=== PATIENT | male | born 1990 | race Caucasian/White ===

== ENCOUNTER 2016-03-08 18:01 | Emergency (ER) | payer OTHER, MEDICAID ==
[~2016-03-08] VITALS: Ht 208.3 cm; Wt 117.9 kg
[~2016-03-08 18:01] MED LIST: AMOX-358 PO; AMOX500C2 PO; OFLO5DRO7 LEFT EAR; TRAM-42 PO
--- OUTSIDE RECORDS SUMMARY | 2016-03-08 18:05 | XMS REPORT | Continuity of Care Document ---
Author Author [facility] Organization [facility] Address Unknown Phone Unavailable Care Team Providers Care Buhr Dresser Name Role Phone NO, LOCAL PHYSICIAN PCP Unavailable Insurance Providers Payer Name Policy Number Subscriber Name Relationship Self Pay Will Leroy 17 Self / Same As Patient Advance Directives Directive Response Recorded Date/Time Advance Directives No 09/19/15 11:47am Health Care Power of Tin Can Feeder No 09/19/15 11:47am Organ Donor No 09/19/15 11:47am Chief Complaint and Reason for Visit Chief Complaint Ear Problems Reason for Visit Otitis externa Otitis media Problems Active Problems Medical Problem Onset Date Status Otitis externa Unknown Acute Otitis media Unknown Acute Medications Current Home Medications Medication Dose Units Route Directions Days/Qty Instructions Start Date Amoxicillin/Potassium Clav 1 Each 1 Each Oral Twice A Day 20 10/14/15 Ofloxacin 5 Ml 10 Drops Left Ear Daily 7 Days 10/14/15 Past Home Medications Medication Directions Ordered Status Amoxicillin 500 Mg Capsule, 1000 Mg Oral Three Times A Day 09/19/15 Discontinued Social History Social History Problem Response Recorded Date/Time Recent Foreign Travel No 10/14/2015 2:41pm Recent Infectious Disease Exposure No 10/14/2015 2:41pm Type Used Cigarettes 09/19/2015 11:47am Recent Hopitalizations No 10/14/2015 2:44pm Hospital Discharge Instructions No hospital discharge instructions. Plan of Care Discharge Date 10/14/15 3:04pm Disposition 01 HOME, SELF-CARE Condition at Discharge Stable Instructions/Education Provided Otitis Externa (ED) Otitis Media (ED) Forms Provided Work Release Form Prescriptions See Medication Section Referrals LAVONNE NOLEN MD - NO,LOCAL PHYSICIAN - Primary Care Physician Additional Instructions/Education 1. Medication as directed 2. Follow-up with Dr. Nolen 2 All discharge instructions reviewed with patient and/or family. Voiced understanding. Functional Status No functional status results. Allergies, Adverse Reactions, Alerts No known allergies. Immunizations No immunization records. Vital Signs Acute Vital Signs Vital Response Date/Time Temperature (Fahrenheit) 98 degrees F (97.6 - 99.5) 10/14/2015 2:41pm Temperature (Calculated Celsius) 36.6696 degrees C (36.4 - 37.5) 10/14/2015 2 :41pm Temperature Source Temporal 09/19/2015 12:34pm Pulse Rate (adult) 98 bpm (60 - 90) 10/14/2015 2:41pm Respiratory Rate 16 bpm (12 - 24) 10/14/2015 2:41pm O2 Sat by Pulse Oximetry 97 % (88 - 100) 10/14/2015 2:41pm Blood Pressure 119/79 mm Hg 10/14/2015 2:41pm Blood Pressure Mean 92 mm Hg 10/14/2015 2:41pm Pain Numeric Pain Scale 7 10/14/2015 2:41pm Height (Feet) 5 feet 10/14/2015 2:41pm Height (Inches) 10 inches 10/14/2015 2:41pm Height (Calculated Centimeters) 177.085618 cm 10/14/2015 2:41pm Weight (Pounds) 220 pounds 10/14/2015 2:41pm Weight (Calculated Kilograms) 99.312218 kilograms 10/14/2015 2:41pm Capillary Refill Capillary Refill Less Than 3 Seconds 10/14/2015 2:41pm Height 5 ft 10 in Weight 220 lb Body Mass Index 31.6 kg/m^2 Results No known relevant diagnostic tests, laboratory data and/or discharge summary. Procedures No known history of procedures. Encounters Encounter Location Arrival/Admit Date Discharge/Depart Date Attending Provider Departed Emergency Room [facility] 10/14/15 2:20pm 10/13 3:04pm FAISAL SIMPSON APRN Departed Emergency Room [facility] 08/13/16 11:31am 12:34pm ELYSSA NEWBERRY Recent Diagnosis
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
[2016-03-08] MEDS ORDERED: KETOROLAC 30 MG/ML VIAL IVP ONE (18:30)
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
[2016-03-08] MEDS ORDERED: NAPR500T PO (18:37)
[2016-03-08 18:45] VITALS: BP 138/92
== END 2016-03-08 18:45 | disposition home or self-care (01) ==
LOC: EDUNIT# 18:01 → ER 18:02
DX: S89.91XA Unspecified injury of right lower leg, initial encounter (principal); F17.210 Nicotine dependence, cigarettes, uncomplicated; V43.62XA Car passenger injured in collision with other type car in traffic accident, initial encounter; Y92.414 Local residential or business street as the place of occurrence of the external cause; Y99.8 Other external cause status
CPT/HCPCS: 73562; 96374; 99283

== ENCOUNTER 2016-05-24 15:50 | Emergency (ER) | payer MEDICAID, OTHER ==
[~2016-05-24] VITALS: Ht 208.3 cm; Wt 117.9 kg
[~2016-05-24 15:50] MED LIST changes: +NAPR500T PO
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
--- NOTE | 2016-05-24 16:50 | Diagnostic Imaging Report ---
EXAMINATION: Three views of the left hand. INDICATION: Injury. FINDINGS: There is no fracture, dislocation, or radiopaque foreign body. IMPRESSION: Unremarkable exam. Dictated by: Dictated on workstation # [id number]
[2016-05-24] MEDS ORDERED: HYDROcodone/APAP 5 MG/325 MG (LORTAB) TAB PO STA (16:58)
[2016-05-24 17:09] VITALS: BP 148/86
== END 2016-05-24 17:09 | disposition home or self-care (01) ==
LOC: EDUNIT# 15:50 → ER 15:52
DX: S63.602A Unspecified sprain of left thumb, initial encounter (principal); F17.210 Nicotine dependence, cigarettes, uncomplicated; Y04.0XXA Assault by unarmed brawl or fight, initial encounter; Y99.8 Other external cause status
CPT/HCPCS: 73130; 99283

== ENCOUNTER 2016-07-16 09:19 | Emergency (ER) | payer MEDICAID ==
[~2016-07-16] VITALS: Ht 182.9 cm; Wt 113.4 kg
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
[2016-07-16] MEDS ORDERED: MUPI1OIN6 TP (10:46)
[2016-07-16 12:00] VITALS: BP 131/82
== END 2016-07-16 11:04 | disposition home or self-care (01) ==
LOC: EDUNIT# 09:19 → ER 09:22
DX: L01.00 Impetigo, unspecified (principal); F17.210 Nicotine dependence, cigarettes, uncomplicated
CPT/HCPCS: 99282